=== PATIENT | female | born 1940 | race Caucasian/White ===

== ENCOUNTER 2016-10-20 12:00 | Emergency (ER) | payer MEDICARE, OTHER ==
[2016-10-20 12:22] VITALS: BP 143/77
--- NOTE | 2016-10-20 12:30 | ED Physician Documentation ---
PD HPI OPHTHO - Stated complaint Stated Complaint: LEFT EYE REDNESS - Chief complaint Chief Complaint: Heent - History obtained from History obtained from: Patient - History of Present Illness Timing - onset: Other (5 days of a mildly painful stye to the lower lid of the left eye without visual deficit.) Review of Systems Constitutional: denies: Fever, Chills Eyes: denies: Loss of vision, Decreased vision, Photophobia Ears: denies: Loss of hearing, Ear pain Nose: denies: Rhinorrhea / runny nose, Congestion PD PAST MEDICAL HISTORY - Present Medications Home Medications: Ambulatory Orders Medication Instructions Recorded Confirmed Erythromycin Base [Erythromycin] 1 applic OP 5XD 7 Days 10/20/16 PD ED PE NORMAL - Vitals Vital signs reviewed: Yes - General General: Alert and oriented X 3, No acute distress - HEENT HEENT: PERRL, EOMI, Other (Small stye Left lower lateral lid without cellulitis. ) - Neuro Neuro: Alert and oriented X 3, Normal speech - Psych Psych: Normal mood, Normal affect Results - Vitals Vitals: Vital Signs - 24 hr 10/20/16 12:20 Temperature 36.3 C L Heart Rate 51 L Respiratory 16 Rate Blood Pressure 143/77 H O2 Saturation 100 Oxygen O2 Source Room air Departure - Departure Disposition: 01 Home, Self Care Clinical Impression: Hordeolum externum (stye) Qualifiers: Laterality: left Eyelid: lower Qualified Code(s): H00.015 - Hordeolum externum left lower eyelid Condition: Good Record reviewed to determine appropriate education?: Yes Instructions: ED Chalazion Prescriptions: Erythromycin Base [Erythromycin] 1 applic OP 5XD 7 Days Comments: I called the prescription into: [facility] [id number] [place], [place] [id number] Warm compress as discussed about 5 times/day and then antibiotic ointment. 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 Your blood pressure was elevated today on check into the emergency department. This does not mean that you have hypertension, it is a common phenomenon to come to the emergency department and have elevated blood pressure. I recommend that she see her primary care physician within the week to have it rechecked when you are feeling better.
== END 2016-10-20 12:37 | disposition home or self-care (01) ==
LOC: ED 12:00
DX: H00.015 Hordeolum externum left lower eyelid (principal); R03.0 Elevated blood-pressure reading, without diagnosis of hypertension
CPT/HCPCS: 99283